=== PATIENT | male | born 1955 | race Caucasian/White ===

== ENCOUNTER 2018-11-01 11:53 | Day surgery (SDC) | payer OTHER ==
[2018-10-29 13:19] VITALS: BMI 35.5
[2018-11-01] MEDS ORDERED: Fentanyl 100 MCG/2 ML VIAL ONE (12:12)
[2018-11-01] MEDS ORDERED: Gadobenate Dimeglumine 529 MG/1 ML (20ML VIAL) ONE (14:35)
--- NOTE | 2018-11-01 15:43 | MRI ---
MRI RIGHT HIP WITHOUT IV CONTRAST: HISTORY: Lumbar spondylosis. Severe right hip pain. FINDINGS: There are some minimal generalized degenerative and osteoarthrosis changes of both hip joints. No ev idence for abnormal marrow signal to suggest avascular necrosis, fracture, or acute stress injury. T here are changes of lumbar spondylosis. Minimal increased signal involving the right and left common hamstring tendon insertion regions, evidence for tendinopathy. Minimal abnormal signal involving th e anterior labrum, evidence for probable degenerative type labral tear or fraying. Gluteal muscles, myotendinous regions, and tendon insertion regions appear unremarkable. IMPRESSION: 1. There are some degenerative and osteoarthrosis changes of both hip joints. No abnormal marrow si gnal. Minimal altered signal involving the anterior right hip labrum, evidence for degenerative type tear versus focal fraying. 2. Lumbar spondylosis. 3. Bilateral common hamstring tendon insertion tendinopathy. POS: [facility]
[2018-11-01] MEDS ORDERED: HYDROcodone/Acetaminophen 5/325 mg Tablet ONE (15:47)
--- NOTE | 2018-11-01 15:53 | MRI ---
MRI lumbar spine with and without IV contrast HISTORY: Low back pain. Radiation to right hip. Prior surgery. FINDINGS: There is desiccation of all of the intervertebral discs. Vertebral body heights and alignme nt are maintained. Small Schmorl's nodes and other discogenic endplate changes throughout each level. Conus medullaris has a normal appearance. Images including retroperitoneum partially demonstra te cysts of the cortex of each kidney. T12-L1: Mild disc space narrowing. Diffuse posterior disc bulge. Effacement of the ventral aspect of the thecal sac. Circumferential degenerative changes with mild to moderate stenosis of the central canal. Neural foramina are patent. L1-2: Disc space narrowing. Posterior degenerative changes. Thecal sac and neural foramina are patent . L2-3: Very mild posterior disc bulge. Prominent posterior degenerative changes. Moderate stenosis of the central canal. Mild to moderate stenosis of each neural foramen. L3-4: Right posterolateral disc herniation with inferior extension. Effacement of the right ventral a spect of the thecal sac and compression of the lower root. Far right lateral component of the disc herniation compromises the right neural foramen. Degenerative changes also result in mild stenosis of the left neural foramen. L4-5: Posterior disc bulge and circumferential degenerative changes. Moderate stenosis of the central canal and each neural foramen. L5-S1: Minimal degenerative retrolisthesis. Mild disc bulge. Thecal sac is patent. Severe right and m oderate left foraminal stenoses. IMPRESSION: Multilevel degenerative changes throughout the lumbar spine as detailed above. Disease mo st pronounced at the L3-4 level where a right posterolateral disc herniation with inferior extension affects the right L3 and L4 nerve roots.
== END 2018-11-01 16:11 | disposition home or self-care (01) ==
LOC: SDC/OP 11:53
PROVIDERS: ATTEND Orthopaedic Surgery
DX: M48.05 Spinal stenosis, thoracolumbar region (principal); M48.061 Spinal stenosis, lumbar region without neurogenic claudication; M51.26 Other intervertebral disc displacement, lumbar region; M47.816 Spondylosis without myelopathy or radiculopathy, lumbar region; M16.0 Bilateral primary osteoarthritis of hip; M54.31 Sciatica, right side; E78.00 Pure hypercholesterolemia, unspecified; I10 Essential (primary) hypertension; K21.9 Gastro-esophageal reflux disease without esophagitis; Z91.041 Radiographic dye allergy status; Z79.82 Long term (current) use of aspirin; Z79.84 Long term (current) use of oral hypoglycemic drugs; Z79.899 Other long term (current) drug therapy
CPT/HCPCS: 72158; A9577; J3010

== ENCOUNTER 2018-12-03 08:37 | Outpatient (CLI) | payer OTHER ==
--- NOTE | 2018-12-03 09:13 | RAD ---
LUMBAR SPINE THREE VIEW SERIES: INDICATIONS: Low back pain. TECHNIQUE: Three lateral projections, including neutral, flexion, and extension, performed. AP view is not subm itted, limiting assessment. FINDINGS: Neutral lateral projection reveals no significant subluxation. Evaluation of flexion and extension l ateral views reveals no obvious translational motion. There is moderate disk degenerative disease at L5-S1 and multilevel mild endplate degenerative change of the lumbar spine otherwise demonstrated. Multilevel facet osteoarthritis of the lumbar spine is present, greatest superiorly. Incidental note of atherosclerosis. No compression deformity. IMPRESSION: No significant subluxation or evidence of abnormal translational motion identified on the provided la teral views. POS: [facility]
== END 2018-12-03 08:38 | disposition home or self-care (01) ==
LOC: TBSIIMAG 08:37
PROVIDERS: ATTEND Neurological Surgery
DX: M54.5 Low back pain (principal)
CPT/HCPCS: 72100

== ENCOUNTER 2018-12-23 16:05 | Outpatient (CLI) | payer OTHER ==
[2018-12-23 17:15] LABS: Hemoglobin 17.2 g/dL (14.0-18.0); Mean Corpuscular Volume 78.8 fL (78.0-98.0); Mean Platelet Volume 9.6 fL (7.4-10.4); Platelet Count 167 thou/uL (130-400); RBC Distribution Width 16.4 % (11.5-14.5); Red Blood Cell (RBC) Count 6.64 mill/uL (4.70-6.10); White Blood Cell (WBC) Count 7.8 thou/uL (4.8-10.8)
[2018-12-23 17:25] LABS: PTT 28.3 SEC (22.9-36.1); Prothrombin Time 12.9 SEC (12.0-14.7)
[2018-12-23 17:47] LABS: Anion Gap 17 mmol/L (10-20); BUN (Urea Nitrogen) 18 mg/dL (8.4-25.7); Calc. Creatinine Clearance 0 mL/min (70-130); Calcium 9.8 mg/dL (7.8-10.44); Carbon Dioxide 22 mmol/L (23-31); Chloride 102 mmol/L (98-107); Estimated GFR-MDRD 48; Glucose 170 mg/dL (80-115); Potassium 4.3 mmol/L (3.5-5.1); Sodium 137 mmol/L (136-145)
--- NOTE | 2018-12-24 16:50 | EKG ---
Test Reason : Blood Pressure : / mmHG Vent. Rate : 087 BPM Atrial Rate : 087 BPM P-R Int : 156 ms QRS Dur : 154 ms QT Int : 398 ms P-R-T Axes : 055 -40 -20 degrees QTc Int : 478 ms Normal sinus rhythm Left axis deviation Right bundle branch block T wave abnormality, consider lateral ischemia Inferior ischemia Abnormal ECG No previous ECGs available Confirmed by DR. Dimitris GAMBINO ([id number]) on 12/24/2018 4:50:18 PM Referred By: JOSE LUIS Confirmed By:DR. Dimitris GAMBINO
== END 2018-12-23 16:06 | disposition home or self-care (01) ==
LOC: LABBT 16:05
PROVIDERS: ATTEND Neurological Surgery
DX: Z01.818 Encounter for other preprocedural examination (principal); M51.16 Intervertebral disc disorders with radiculopathy, lumbar region; M48.061 Spinal stenosis, lumbar region without neurogenic claudication
CPT/HCPCS: 80048; 85027; 85610; 85730; 93005; 93010

== ENCOUNTER 2018-12-24 05:43 | Observation (INO) | payer OTHER ==
--- NOTE | 2018-12-23 07:15 | HP ---
HISTORY OF PRESENT ILLNESS: This is a 63-year-old male, who reports to our office for evaluation of low back and right leg pain. The patient states that he had lumbar surgery with Dr Hutchinson in 1998, which went well. His low back started to bother him in June. Over the last 6 weeks have been worse. He states that it is very painful to step on the right leg and that his foot feels cold. He has pain that wraps around the low back of his glutes to anterior knee to his teresa. He states that his recliner is the most comfortable position for him. When standing or walking, often has to lean on the counter or shopping cart to get some relief. Sitting helps significantly. Dr. Tsai has given him a few injections with not much benefit and he has been through physical therapy, takes Lyrica, Flexeril, and tramadol. REVIEW OF SYSTEMS: A 10-point review of systems has been completed and is negative other than stated in the above HPI. PAST MEDICAL HISTORY: Hyperlipidemia, hypertension, and acid reflux. PAST SURGICAL HISTORY: Esophageal dilation, right shoulder surgery, and L3-L4 laminectomy. FAMILY HISTORY: Father is , diagnosed with hypertension and heart disease. Mother is , diagnosed with hypertension. SOCIAL HISTORY: The patient is a nonsmoker. Drinks alcohol on occasion. Denies any other drug use. He is . MEDICATIONS: 1. Tramadol. 2. Metoprolol. 3. Lisinopril. 4. Omeprazole. 5. Amlodipine. 6. Metformin. 7. Cyclobenzaprine. 8. Lyrica. ALLERGIES: IV CONTRAST. PHYSICAL EXAMINATION: CONSTITUTIONAL: Well appearing, well-nourished, alert, nontoxic appearing. RESPIRATIONS: Normal work of breathing on room air. NEUROLOGIC: Alert and oriented x3. Speech is spontaneous with normal cranial nerves grossly intact. Lower extremities 5/5 bilateral strength, hip flexion, knee flexion, knee extension, dorsiflexion, plantar flexion, and EHL. L4 right-sided radiculopathy. Negative single leg raise bilaterally. Hip rotation normal bilaterally. Tender to palpate lumbar spine. Deep tendon reflexes diminished bilaterally. Negative Babinski. No clonus. Sensory, light touch intact. Gait and station, sit to standing normal. Normal gait. IMAGING: MRI lumbar spine, previous surgery L3-L4 right-sided, L3-L4 herniated nucleus pulposus, right L4-L5 and L5-S1, left is mild. Left lateral recess disease on L2-L3, L4-L5, and L5-S1. Flexion-extension x-rays are stable. ASSESSMENT AND PLAN: Lumbar radiculopathy with no acute herniated nucleus polyposis and lumbar spondylosis. Dr. Del Valle has offered laminectomy L2 through S1 with a redo right-sided microdiskectomy at L3-L4. The patient states that he understands his risks and is willing to proceed with surgery. Job ID: [id number]
[2018-12-23 16:24] VITALS: BMI 33.9
[2018-12-24] MEDS ORDERED: Bupivacaine HCl 0.5%/Epinephrine 1:200,000/PF 30 ml Vial ONE (06:18)
[2018-12-24] MEDS ORDERED: Sodium Chloride 0.9% 20 ML ONE (06:18)
[2018-12-24] MEDS ORDERED: Thrombin 5000 UNITS/5 ML VIAL ONE (06:18)
[2018-12-24] MEDS ORDERED: Fentanyl 100 MCG/2 ML VIAL ONE (06:45)
[2018-12-24] MEDS ORDERED: Albumin 5% 500 ML ONE (07:35)
[2018-12-24] MEDS ORDERED: Neomycin-Polymyxin 1 ML AMP ONE (08:02)
[2018-12-24] MEDS ORDERED: Phenylephrine HCL 10 MG/ML VIAL ONE (08:06)
[2018-12-24] MEDS ORDERED: ePHEDrine/0.9% NaCl/PF SYRINGE 50 mg/10 ml ONE (11:02)
[2018-12-24] MEDS ORDERED: SUGAMMADEX SODIUM 200 MG/2 ML VIAL ONE (11:24)
[2018-12-24] MEDS ORDERED: HYDROmorphone 2 MG/ML VIAL ONE (11:29)
--- NOTE | 2018-12-24 12:44 | OP ---
DATE OF PROCEDURE: 12/24/2018 WILDLIFE CONSERVATIONIST: Jillian Kenney PA-C PREOPERATIVE INDICATION: Treat pain and prevent neurological deterioration. PREOPERATIVE DIAGNOSES: 1. Multilevel lumbar stenosis with neurogenic claudication. 2. Recurrent right L3-L4 intervertebral disk herniation with right L4 radiculopathy. POSTOPERATIVE DIAGNOSES: 1. Multilevel lumbar stenosis with neurogenic claudication. 2. Recurrent right L3-L4 intervertebral disk herniation with right L4 radiculopathy. OPERATIVE PROCEDURES: 1. Decompressive laminectomy, medial facetectomy, foraminotomy at L2-L3, L3-L4, L4-L5. L5-S1. 2. Right-sided repeat L3-L4 microdiskectomy. 3. Operating microscope. PREOPERATIVE MEDICATIONS: Ancef 2 g IV. DRAIN NUMBER: Zero. DRAIN TYPE: None. DESCRIPTION OF PROCEDURE: The patient was brought to the operating room. General endotracheal anesthesia was induced. The patient was positioned prone on the operating table with his chest and hips supported by gel-filled chest rolls. A lateral fluoro radiograph was used to plan our incision. The lumbar skin was sterilely prepped and draped. We opened the patient's previous incision and extended superiorly and inferiorly. We controlled the bleeding with gentle bipolar cautery. We used monopolar cautery to dissect through subcutaneous tissues to the thoracodorsal fascia. We incised the fascia in the midline and we reflected the paraspinal muscles off the spinous process and lamina of L2 through S1. Self-retaining retractors were placed and a lateral fluoro radiograph confirmed the levels upon which we were operating. We then used an Adson rongeur to remove the spinous process of L2, L3, L4, L5 and the superior portion of the sacrum. Using a Kerrison rongeur, we fashioned our laminectomy down the midline. In order to decompress the lateral recesses, we performed medial facetectomies. Then, we ensured, by performing foraminotomies, that we had freed the nerve roots, so that they could pass through the lateral recess and out the foramen at L2, L3, L4, L5, and S1. On the right at L3-L4, there was significant scar tissue and our foraminotomy required the use of the operative microscope. Under microscopic magnification using microsurgical techniques, we carefully drilled away the medial portion of the facet joint at L3-L4 as well as a portion of the medial portion of the pedicle. This allowed us to get lateral to the L4 nerve root, which was stretched. We gently retracted the nerve root medially and noticed in the ventral epidural space that there was a dense disk protrusion that was stretching the nerve root. We carefully dissected any attachment between the dura and the disk and then swept multiple fragments of loose disk material laterally from under the ventral surface of the L4 nerve root with a forward facing curette. Multiple sweeps were used. The shell of the disk was adherent to the dura, but the substance of it was removed and the nerve could easily be manipulated medially and laterally thereafter. We performed a foraminotomy over the exiting nerve root. There was a large hole in the annulus fibrosus, through which the disk had herniated and we reached inside the disk space with pituitary rongeurs. Loose fragments of disk were removed, but those disk fragments that were firmly adherent to the endplates were left in place. We irrigated with bacitracin irrigation and we harvested a fat graft. We placed this fat graft into the annular defect on the disk space. We irrigated the entire wound with bacitracin irrigation. We checked one last time whether Posada ball probe could pass through each lateral recess and out the foramina with the nerve roots and no impingement. We waxed the bone edges. We infused local anesthetic in the paraspinal muscles. We closed the wound in anatomical layers. We applied a sterile dressing. This was a clean case, no contamination. Job ID: [id number]
[2018-12-24] MEDS ORDERED: Mag-Al 1200 mg/1200 mg/30 ML UDCUP PO PRN (13:50)
[2018-12-24] MEDS ORDERED: diphenhydrAMINE 25 MG CAP PO PRN (13:50)
[2018-12-24] MEDS ORDERED: Morphine 2 MG/ML SYRINGE SLOW IVP PRN (13:50)
[2018-12-24] MEDS ORDERED: Acetaminophen/Codeine 30-300mg Tablet PO PRN ×2 (13:50)
[2018-12-24] MEDS ORDERED: Promethazine HCl 25 MG/ML VIAL IM PRN (13:50)
[2018-12-24] MEDS ORDERED: Milk Of Magnesia 30 ML UDCUP PO PRN (13:50)
[2018-12-24] MEDS ORDERED: Prochlorperazine 10 MG/2 ML VIAL IM PRN (13:50)
[2018-12-24] MEDS ORDERED: diphenhydrAMINE 50 MG/ML VIAL IVP PRN (13:50)
[2018-12-24] MEDS ORDERED: Ondansetron PF 4 MG/2 ML Vial IVP PRN (13:50)
[2018-12-24] MEDS ORDERED: Morphine 4 MG/ML VIAL SLOW IVP PRN (13:50)
[2018-12-24] MEDS ORDERED: Bisacodyl 10 MG SUPP PR PRN (13:50)
[2018-12-24] MEDS ORDERED: tiZANidine HCl 4 MG TAB PO PRN (13:50)
[2018-12-24] MEDS ORDERED: Promethazine 25 MG TAB PO PRN (13:50)
[2018-12-24] MEDS ORDERED: Acetaminophen 325 MG TAB PO PRN (14:22)
[2018-12-24] MEDS ORDERED: Rocuronium Bromide 10 MG/ML (10ML VIAL) ONE (14:42)
[2018-12-24] MEDS ORDERED: Calcium Chloride 1 GM/10 ML Abboject SYRINGE ONE (14:42)
[2018-12-24] MEDS ORDERED: Ondansetron PF 4 MG/2 ML Vial ONE (14:42)
[2018-12-24] MEDS ORDERED: Dexamethasone 20 MG/5 ML VIAL ONE (14:42)
[2018-12-24] MEDS ORDERED: Glycopyrrolate 0.2 MG/ML 5 ML SYRINGE ONE (14:42)
[2018-12-24] MEDS ORDERED: Vecuronium 10 MG VIAL ONE (14:42)
[2018-12-24] MEDS ORDERED: PROPOFOL 200 MG/20 ML VIAL ONE (14:42)
[2018-12-24] MEDS ORDERED: Lidocaine 1% PF 5 ML VIAL ONE (14:42)
[2018-12-24] MEDS ORDERED: ePHEDrine 50 MG/ML VIAL ONE (14:42)
[2018-12-24] MEDS ORDERED: PHENYLEPHRINE-NS 100 MCG/ML 10 ML SYRINGE ONE (14:42)
[2018-12-24] MEDS: CEFAZOLIN 2 GM in Premix Bag 1 BAG IVPB SCH ×2 (15:02→22:56)
[2018-12-24] MEDS: Sodium Chloride 0.9% 1,000 ML IV SCH (15:05)
[2018-12-24] MEDS: Cyclobenzaprine 10 MG TAB PO SCH (20:15)
[2018-12-24] MEDS: Pregabalin 75 MG CAP PO SCH (20:15)
[2018-12-24] MEDS ORDERED: metFORMIN 500 MG TAB PO SCH (21:00)
[2018-12-25] MEDS: Sodium Chloride 0.9% 1,000 ML IV SCH (04:39)
--- NOTE | 2018-12-25 06:04 | PDOC.FM ---
- Subjective Subjective: Pt doing well this morning. Reports normal urination and bowel function. Pain is well controlled, has been walking the halls. Is using IS without difficulty. Slept well. Has no concerns. Denies CP, SOB, THOMPSON, n/v/c/d. - Objective MAR Reviewed: Yes Vital Signs & Weight: Vital Signs (12 hours) Temp Pulse Resp BP Pulse Ox 12/25/18 04:00 98 F 98 16 138/82 93 L 12/24/18 23:58 97.8 F 92 16 117/77 96 12/24/18 20:00 97.3 F L 103 H 16 139/75 95 Weight Weight 113.398 kg I&O: 12/23/18 12/24/18 12/25/18 06:59 06:59 06:59 Intake Total 750 Balance 750 Result Diagrams: 12/25/18 06:37 Phys Exam - Physical Examination Constitutional: NAD HEENT: moist MMs Neck: no nodes Respiratory: no wheezing, no rales, clear to auscultation bilateral Cardiovascular: RRR, no significant murmur Gastrointestinal: soft, non-tender, no distention, positive bowel sounds Musculoskeletal: no edema, pulses present Neurological: normal sensation, moves all 4 limbs Psychiatric: normal affect, A&O x 3 Dx/Plan (1) S/P laminectomy Code(s): Z98.890 - OTHER SPECIFIED POSTPROCEDURAL STATES Status: Acute (2) Hypertension Code(s): I10 - ESSENTIAL (PRIMARY) HYPERTENSION Status: Acute (3) GERD (gastroesophageal reflux disease) Code(s): K21.9 - GASTRO-ESOPHAGEAL REFLUX DISEASE WITHOUT ESOPHAGITIS Status: Acute (4) Hyperlipidemia Code(s): E78.5 - HYPERLIPIDEMIA, UNSPECIFIED Status: Acute - Plan Plan: S/P Laminectomy - pain management per primary team - continue IS - pt doing well HTN: stable, continue home meds HLD: on fish oil at home, continue CKD3: stable, continue f/u BMP's with PCP post discharge. GERD - continue home meds DVT PPx: SCD's Dispo: Likely d/c home today Addendum - Attending - Attending Attestation Date/Time: 12/25/181951 I personally evaluated the patient and discussed the management with Dr. Wells I agree with the History, Examination, Assessment and Plan documented above with any addition or exceptions noted below.
[2018-12-25 07:16] LABS: Anion Gap 12 mmol/L (10-20); BUN (Urea Nitrogen) 19 mg/dL (8.4-25.7); Calc. Creatinine Clearance 77 mL/min (70-130); Carbon Dioxide 26 mmol/L (23-31); Chloride 99 mmol/L (98-107); Estimated GFR-MDRD 45; Glucose 129 mg/dL (80-115); Potassium 4.1 mmol/L (3.5-5.1); Sodium 133 mmol/L (136-145)
[2018-12-25 07:34] VITALS: BP 124/79; TEMP 98.8
[2018-12-25] MEDS ORDERED: Lisinopril 20 MG TAB PO SCH (09:00)
[2018-12-25] MEDS ORDERED: SAW PALMETTO 80 MG PO SCH (09:00)
[2018-12-25] MEDS ORDERED: Amlodipine 10 MG TAB PO SCH (09:00)
[2018-12-25] MEDS: Pregabalin 75 MG CAP PO SCH (09:17)
[2018-12-25] MEDS: Cyclobenzaprine 10 MG TAB PO SCH (09:17)
--- NOTE | 2018-12-25 11:38 | DIS ---
DATE OF ADMISSION: 12/24/2018 DATE OF DISCHARGE: 12/25/2018 Mr. Owens is postop day #1, following multisegment lumbar laminectomy with Dr. Del Valle and is doing very well. He has already been up ambulating in the hallways and has minimal pain. He would like to go home. We will go ahead and discharge him today. I discussed restrictions and expectations going forward and will see Dr. Walsh and Dr. Del Valle in 2 weeks. Job ID: [id number]
--- NOTE | 2018-12-27 08:37 | CON ---
DATE OF CONSULTATION: CONSULTING PHYSICIAN: [facility]. HISTORY OF PRESENT ILLNESS: Oj Owens is a 63-year-old male, with past medical history of hypertension, hyperlipidemia, and acid reflux, who was admitted for laminectomy of L2 through S1 with redo of right-sided microdiskectomy at L3 to L4. The patient had procedure done morning of 12/24/2018. Family Medicine Team was consulted for medical management of the patient's chronic conditions. The patient states that he is feeling well postop, he states his pain is well controlled. States that he had no complications from his procedure and is doing well. States that he has a history of hypertension and he is taking lisinopril, metoprolol and amlodipine and states that it has been under decent control. He is a patient of Dr. Galindo. The patient has a long history of chronic low back pain. Over the last 6 weeks, it has gotten worse and the patient had been through conservative treatment including back injections, physical therapy, and he is also taking Lyrica, Flexeril, and tramadol. Pain had continued to get worse and so Neurosurgery decided to proceed with operative management. The patient denies any fevers, chills, headaches, vision changes, chest pain, shortness of breath, nausea, vomiting, diarrhea, urinary frequency, or dysuria. REVIEW OF SYSTEMS: 12-point review of systems was reviewed and was negative unless otherwise stated in HPI. PAST MEDICAL HISTORY: 1. Hyperlipidemia. 2. Hypertension. 3. Acid reflux. PAST SURGICAL HISTORY: 1. Esophageal dilation. 2. Right shoulder surgery. 3. Laminectomy L2 through S1 and microdiskectomy of L3 to L4, postop day 0. ALLERGIES: IV CONTRAST. FAMILY HISTORY: Coronary artery disease and hypertension. SOCIAL HISTORY: The patient is nonsmoker. He is a social drinker and denies any drug use. He is . MEDICATIONS: 1. Tramadol. 2. Metoprolol. 3. Lisinopril. 4. Omeprazole. 5. Amlodipine. 6. Metformin. 7. Cyclobenzaprine. 8. Lyrica. PHYSICAL EXAMINATION: GENERAL: The patient is well-appearing, well-nourished, alert and oriented x3. CARDIOVASCULAR: Regular rate and rhythm. No murmurs, rubs, or gallops. LUNGS: Clear to auscultation bilaterally. Normal respiratory effort. ABDOMEN: Protuberant, soft, nontender, normoactive bowel sounds. EXTREMITIES: No cyanosis or edema. NEUROLOGIC: Alert and oriented x3. Cranial nerves 2 through 12 grossly intact. 5/5 strength in upper and lower extremities bilaterally. LABORATORY/IMAGING: There are no labs or imaging from this admission. ASSESSMENT AND PLAN: 1. Chronic back pain: Status post laminectomy L2 through S1 with redo right-sided microdiskectomy at L3 to L4, postop day #0. Routine postop management and pain control per Primary Team. 2. Hypertension. We will continue home medications including metoprolol, amlodipine, and lisinopril. We will continue routine monitoring of blood pressures and adjust if necessary. 3. Hyperlipidemia. We will consider checking fasting lipid panel in the morning as the patient is not currently on a statin. 4. Acid reflux. We will continue home omeprazole. Job ID: [id number]
== END 2018-12-25 10:41 | disposition home or self-care (01) ==
LOC: SDC 05:43 → SURG B 14:53
PROVIDERS: ADMIT Neurological Surgery; ATTEND Neurological Surgery
PROC: 01NB0ZZ Release Lumbar Nerve, Open Approach (ICD-10-PCS; principal; 2018-12-24)
DX: M48.062 Spinal stenosis, lumbar region with neurogenic claudication (principal); M51.16 Intervertebral disc disorders with radiculopathy, lumbar region; I10 Essential (primary) hypertension; E78.00 Pure hypercholesterolemia, unspecified; E78.5 Hyperlipidemia, unspecified; K21.9 Gastro-esophageal reflux disease without esophagitis; Z79.84 Long term (current) use of oral hypoglycemic drugs; Z79.899 Other long term (current) drug therapy; Z91.041 Radiographic dye allergy status
CPT/HCPCS: 36415; 76000; 80048; 96365; 96376; G0378; J0670; J0690; J1170; J2370; J3010; J3370; J3490; P9045; Q0163

== ENCOUNTER 2020-03-26 08:44 | Outpatient (CLI) | payer OTHER ==
[2020-03-27 06:31] LABS: SARS-CoV-2 MS2 Positive; SARS-CoV-2 N Gene Negative; SARS-CoV-2 S Gene Negative; SARS-CoV-2 by NAA Not Detected (NotDetected); SARS-CoV-2 orf1ab Negative
== END 2020-03-26 08:45 | disposition home or self-care (01) ==
LOC: LABBT 08:44
PROVIDERS: ATTEND Neurological Surgery
DX: M54.16 Radiculopathy, lumbar region (principal); Z20.828 Contact with and (suspected) exposure to other viral communicable diseases
CPT/HCPCS: 87635; U0003

== ENCOUNTER 2020-03-30 09:18 | Day surgery (SDC) | payer OTHER ==
[2020-03-29 14:07] VITALS: BMI 34.2
[2020-03-30] MEDS ORDERED: PHENYLEPHRINE-NS 100 MCG/ML 10 ML SYRINGE ONE (09:40)
[2020-03-30] MEDS ORDERED: Glycopyrrolate 0.2 MG/ML 5 ML SYRINGE ONE (09:40)
[2020-03-30] MEDS ORDERED: Lidocaine 1% PF 5 ML VIAL ONE (09:40)
[2020-03-30] MEDS ORDERED: PROPOFOL 200 MG/20 ML VIAL ONE (09:40)
[2020-03-30] MEDS ORDERED: ePHEDrine 50 MG/ML VIAL ONE (09:40)
[2020-03-30] MEDS ORDERED: Fentanyl 100 MCG/2 ML VIAL ONE (09:55)
--- NOTE | 2020-03-30 10:24 | RAD ---
LUMBAR SPINE 3 VIEWS: Lateral views were obtained with neutral, flexion, and extension. INDICATION: Low back pain. COMPARISON: Comparison is made to lumbar films of 12/03/2018. FINDINGS: Lumbar vertebrae maintain height and alignment. There are degenerative changes noted with osteophyte s which are most pronounced at the L3-4 and L5-S1 levels. These findings are stable. Facet hypertro phy is prominent in the lower lumbar spine, stable in appearance. No spondylolisthesis or significan t change in alignment. IMPRESSION: Moderate degenerative change of the lumbar spine, stable from prior exam. POS: [facility]
--- NOTE | 2020-03-30 11:40 | MRI ---
MRI of thelumbar spine with and without contrast: 03/30/2020 COMPARISON:11/01/2018 HISTORY:Bilateral lower extremity pain, history of lumbar spine surgery TECHNIQUE: Multiplanar multisequence MR imaging of thelumbar spine with and without contrast Findings:The sagittal STIR imaging demonstrates mild degenerative edematous endplate changes posterio rly at the L3-4 level. On the basis of 5 lumbar type vertebral bodies, the conus medullaris terminates at the T12-L1 level. T12-L1: There is disc space narrowing and disc desiccation with a central disc protrusion partially e ffacing the ventral thecal sac and leading to mild central canal stenosis. Mild bilateral facet hypertrophy. No significant neural foraminal stenosis. L1-2: Mild disc space narrowing and partial disc desiccation. Mild bilateral facet hypertrophy. No si gnificant central canal or neural foraminal stenosis. L2-3: There is disc space narrowing and disc desiccation. There is a disc extrusion in the left parac entral region with inferior migration. Inferiorly migrated disc extrusion measures approximately 1.7 cm in craniocaudal dimension and leads to severe left lateral recess stenosis posterior to the up per and midportion of the L3 vertebral body. Bilateral facet hypertrophy is noted with mild bilateral neural foraminal stenosis. The disc extrusion in the left paracentral region at L2-3 is new when compared to the prior study. L3-4: There is disc space narrowing and disc desiccation with mild disc bulge. Bilateral laminectomy changes are present with no central canal stenosis. There is moderate/severe right neural foraminal stenosis and there is mild left neural foraminal stenosis. L4-5: Bilateral laminectomy changes are present with no central canal stenosis. There is disc space n arrowing with disc desiccation and minimal disc bulge. Significant bilateral facet hypertrophy is present with no significant left neural foraminal stenosis. Moderate/severe right neural foraminal st enosis. L5-S1: There is disc space narrowing with disc desiccation and a disc osteophyte complex. Bilateral f acet hypertrophy noted. No central canal stenosis. Moderate/severe bilateral neural foraminal stenosis, right greater than left. Multiple T2 hyperintense lesions are noted within both kidneys suggesting cysts. There is diffuse enh ancement involving the posterior paraspinal musculature, left greater than right, from the axial level of the L2-3 interspace through the axial level of the S1 vertebral body consistent with postope rative scar. No abnormal enhancement is seen involving the contents of the thecal sac. Increased STIR signal is seen within the posterior paraspinal musculature from L2-3 through L5-S1 on the basis of prior surgery. No abnormal enhancement is seen involving the intervertebral discs. IMPRESSION:Multilevel postoperative change. There is multilevel neural foraminal stenosis on the basi s of facet disease. There is a new left paracentral disc extrusion with significant inferior migration and associated lef t lateral recess stenosis at the L2-3 level.
[2020-03-30] MEDS ORDERED: Magnevist 469MG/ML 20 ML VIAL ONE (12:04)
== END 2020-03-30 12:45 | disposition home or self-care (01) ==
LOC: SDC/OP 09:18
PROVIDERS: ATTEND Neurological Surgery
DX: M51.16 Intervertebral disc disorders with radiculopathy, lumbar region (principal); M48.061 Spinal stenosis, lumbar region without neurogenic claudication; E78.00 Pure hypercholesterolemia, unspecified; I10 Essential (primary) hypertension; K21.9 Gastro-esophageal reflux disease without esophagitis; Z79.82 Long term (current) use of aspirin; Z79.84 Long term (current) use of oral hypoglycemic drugs; Z79.899 Other long term (current) drug therapy; Z91.041 Radiographic dye allergy status
CPT/HCPCS: 72100; 72158; 82565; A9579; J2704; J3010; J3490

== ENCOUNTER 2021-12-30 09:37 | Emergency (ER) | payer OTHER ==
[2021-12-30 10:26] LABS: INR-International Normal Ratio 1.1
[2021-12-30 10:27] LABS: PTT 32.1 sec (22.9-36.1)
[2021-12-30] MEDS ORDERED: Midazolam HCl 2 mg/2 ml Vial ONE (10:34)
[2021-12-30 10:36] LABS: ALT (SGPT) 17 U/L (8-55); AST (SGOT) 15 U/L (5-34); Albumin 4.7 g/dL (3.4-4.8); Alkaline Phosphatase 59 U/L (40-110); Anion Gap 13 mmol/L (10-20); BUN (Urea Nitrogen) 13 mg/dL (8.4-25.7); Bilirubin, Total 1.4 mg/dL (0.2-1.2); Calc. Creatinine Clearance 0 mL/min (70-130); Calcium 9.3 mg/dL (7.8-10.44); Carbon Dioxide 26 mmol/L (23-31); Chloride 102 mmol/L (98-107); Estimated GFR 58; Globulin 2.6 g/dL (2.4-3.5); Glucose 153 mg/dL (80-115); Potassium 4.1 mmol/L (3.5-5.1); Protein, Total 7.3 g/dL (5.8-8.1); Sodium 137 mmol/L (136-145)
[2021-12-30 10:46] LABS: #Eosinphils 0.2 thou/uL (0.0-0.7); #Lymphocytes 1.7 thou/uL (1.20-3.40); #Monocytes 0.4 thou/uL (0.11-0.59); #Neutrophils 4.3 thou/uL (1.40-6.50); %Basophils 0.7 % (0.0-1.0); %Eosinophils 3.2 % (0.0-10.0); %Lymphocytes 25.3 % (21.0-51.0); %Monocytes 6.4 % (0.0-10.0); %Neutrophils 64.5 % (42.0-75.0); Hemoglobin 13.8 g/dL (14.0-18.0); Mean Corpuscular HGB CONC 32.1 g/dL (32.0-36.0); Mean Corpuscular Hemoglobin 23.5 pg (27.0-31.0); Mean Corpuscular Volume 73.1 fL (78.0-98.0); Mean Platelet Volume 10.2 fL (7.4-10.4); Platelet Count 161 thou/uL (130-400); RBC Distribution Width 15.8 % (11.5-14.5); Red Blood Cell (RBC) Count 5.87 mill/uL (4.70-6.10); White Blood Cell (WBC) Count 6.7 thou/uL (4.8-10.8)
[2021-12-30 10:49] LABS: Bacteria/HPF None Seen HPF (None Seen); Bilirubin Negative (Negative); Blood, Urine 3+ (Negative); Clarity Clear (Clear); Glucose, Urine (Dipstick) Normal (Negative); Ketone, Urine Negative (Negative); Leukocyte Negative Leu/uL (Negative); Nitrite Negative (Negative); Protein, Urine (Dipstick) 10 mg/dL (Neg-Trace); Specific Gravity, Urine 1.005 (1.002-1.036); Squamous Epithelial None Seen HPF (0-3); Urobilinogen Normal mg/dL (Less than 2); WBC/HPF 0-3 HPF (0-3); pH, Urine 6.5 (5.0-9.0)
[2021-12-30 11:32] LABS: MDiff Complete? YES; Microcytosis SLIGHT = 6-15 cells (100X) (0-5/hpf); Platelet Morphology Comment Appears Adequate; Polychromasia SLIGHT = 2-3 cells (100X) (0-2/hpf)
== END 2021-12-30 11:35 | disposition home or self-care (01) ==
LOC: ERS 09:37
DX: R31.9 Hematuria, unspecified (principal); I10 Essential (primary) hypertension
CPT/HCPCS: 36415; 74176; 80053; 81003; 81015; 85025; 85610; 85730; 87086; J2250